=== PATIENT | female | born 1965 | race Hispanic/Latino ===

== ENCOUNTER 2018-10-23 02:44 | Emergency (ER) | payer BC, OTHER ==
[~2018-10-23] VITALS: Ht 157.5 cm; Wt 113.4 kg
--- OUTSIDE RECORDS SUMMARY | 2018-10-23 02:47 | XMS REPORT | Clinical Summary ---
Author Author [facility] Organization [facility] Address Unknown Phone Unavailable Care Team Providers Care Disability Services Coordinator Name Role Phone Lico Mcdonald MD PCP Allergies Comments Active Allergy Reactions Severity Noted Date Some powdery feeling in throat Lisinopril 11/22/2017 Medications End Date Status Medication Sig Dispensed Refills Start Date Active amLODIPine (NORVASC) 5 mg Take 1 tablet 90 tablet 1 tabletIndications: by mouth 8 Essential hypertension daily. Active naproxen (NAPROSYN) 375 Take 1 tablet 40 tablet 1 mg tabletIndications: by mouth 2 8 Abnormal x-ray times daily (with meals). 12/18/2017 Discontinued amLODIPine (NORVASC) 5 mg Take 1 tablet 90 tablet 0 tabletIndications: by mouth 8 Essential hypertension daily. 01/01/2018 Discontinued losartan (COZAAR) 50 mg Take 1 tablet 90 tablet 1 tabletIndications: by mouth 8 Abnormal EKG daily. 02/07/2018 Discontinued atorvastatin (LIPITOR) 10 Take 1 tablet 90 tablet 0 mg tabletIndications: by mouth at 8 Essential hypertension bedtime nightly. Active Problems Problem Noted Date Abnormal a-ifi-Kcpspqyw avulsion fracture of the distal fibula with 01/12/2018 overlying soft History of fatty infiltration of liver- 2 yrs back outside facility - to 12/18/2017 bring report Screening for colorectal cancer 12/18/2017 Elevated bilirubin 12/18/2017 Body mass index (BMI) 40.0-44.9, adult 12/18/2017 Abnormal EKG 12/18/2017 Anxiety 12/18/2017 Encounters Care Team Description Date Type Specialty Lico Mcdonald MD Results 06/03/2018 Telephone Family Practice Lico Mcdonald MD Need for vaccination (Primary Dx); Rosacea; Essential hypertension; Steatosis of liver; Follow up 05/30/2018 Office Visit Family Practice Elizabeth Valdivia MD Canceled (Schedule Conflict) 05/04/2018 Hospital Radiology Encounter Lico Mcdonald MD Well woman exam 03/29/2018 Lab Appointment Lab 03/09/2018 Ancillary Radiology Procedure Dorinda Stevens MD Myopia of both eyes with astigmatism and presbyopia (Primary Dx) 02/21/2018 Office Visit Ophthalmology Lico Mcdonald MD Chronic pain of left ankle (Primary Dx); Hyperlipidemia, unspecified hyperlipidemia type - pt prefers diet control ; Essential hypertension 02/07/2018 Office Visit Family [facility] Kathleen Armendariz, STAN Information Only 01/19/2018 Telephone [facility] Marion Iqbal Appointment Related Questions 01/19/2018 Telephone Lana Pandey LVN Consult (Orthopedic referral denied. See notes.) 01/16/2018 Telephone [facility] Elizabeth Valdivia MD Abnormal a-wnd-Ksiysjag avulsion fracture of the distal fibula with overlying soft (Primary Dx); Body mass index (BMI) 40.0-44.9, adult 01/12/2018 Orders Only [facility] Elizabeth Valdivia MD Abnormal y-abp-Zpjqvcjq avulsion fracture of the distal fibula with overlying soft (Primary Dx) 01/12/2018 Orders Only Family Practice Lico Mcdonald MD Results (ankle xray ) 01/03/2018 Telephone [facility] Lico Mcdonald MD 01/01/2018 Ancillary Radiology Procedure Lico Mcdonald MD Well woman exam (Primary Dx); Essential hypertension; Acute left ankle pain 01/01/2018 Office Visit Family Practice Maurice Murphy 01/01/2018 Nutrition Nutrition Lico Mcdonald MD Kuncharapu, Indumathi, MD Elevated bilirubin (Primary Dx); History of fatty infiltration of liver- 2 yrs back outside facility - to bring report ; Screening for colorectal cancer; Body mass index (BMI) 40.0-44.9, adult; Bradycardia; Abnormal EKG; Essential hypertension; Anxiety 12/18/2017 Office Visit Family Practice Elizabeth Valdivia MD History of fatty infiltration of liver- 2 yrs back outside facility - to bring report ; Body mass index (BMI) 40.0-44.9, adult; Bradycardia; Abnormal EKG; Anxiety 12/18/2017 Orders Only Family Practice Lico Mcdonald MD 12/07/2017 Hospital Cardiology Encounter Lico Mcdonald MD Bichanga, Karla Yaritza, LVN 11/30/2017 Nurse Only Lico Mcdonald MD 11/23/2017 Ancillary Radiology Procedure Lico Mcdonald MD 11/23/2017 Ancillary Radiology Procedure Lico Mcdonald MD Physical exam, annual (Primary Dx); Bradycardia; Vision test; Need for vaccination; Essential hypertension; Chronic pain of both knees; Chronic midline low back pain without sciatica; Abnormal EKG 11/22/2017 Office Visit Family Practice after 10/22/2017 Immunizations Name Dates Previously Given Next Due Influenza, 05/30/2018 Vaccine<FLUCELVAX>(Multi- Dose) Tdap (Tetanus Toxoid, 11/22/2017 Reduced Diphtheria Toxoid And Acellular Pertussis, Absorbed) Family History Medical History Relation Name Comments Heart Father Lipids Father Stroke Father Arthritis Mother Diabetes Mother Heart Mother heart attack Hypertension Mother Hypertension Sister Hypertension Sister Relation Name Status Comments Brother Other Brother Father Maternal Aunt Maternal Uncle Mother Alive Paternal Aunt Paternal Uncle Sister Alive Sister Alive Sister Alive Sister Alive Sister Alive thyroid Social History Date Tobacco Use Types Packs/Day Years Used Never Smoker Smokeless Tobacco: Never Used Tobacco Cessation: Counseling Given: No Alcohol Use Drinks/Week oz/Week Comments Yes social Sex Assigned at Date Recorded Not on file Industry Job Start Date Occupation Not on file Not on file Not on file Travel End Travel History Travel Start No recent travel history available. Last Filed Vital Signs Time Taken Vital Sign Reading 05/30/2018 9:58 AM MYCOLOGIST Blood Pressure 128/52 05/30/2018 9:16 AM MYCOLOGIST Pulse 52 05/30/2018 9:16 AM MYCOLOGIST Temperature 36.6 C (97.9 F) 05/30/2018 9:16 AM MYCOLOGIST Respiratory Rate 20 - Oxygen Saturation - - Inhaled Oxygen - Concentration 05/30/2018 9:16 AM MYCOLOGIST Weight 111.8 kg (246 lb 6.4 oz) 05/30/2018 9:16 AM MYCOLOGIST Height 154.9 cm (5' 1") 05/30/2018 9:16 AM MYCOLOGIST Body Mass Index 46.56 Plan of Treatment Health Maintenance Due Date Last Done Comments Breast Cancer Scrn 11/23/2018 11/23/2017 (Yearly) Colorectal Cancer Scrn 01/04/2019 01/04/2018 Annual (FIT/FOBT) Age 50 to 75 IMM Influenza Seasonal 04/02/2019 05/30/2018 Oct to August (>/=19 yrs) Cervical Cancer Scrn (3 01/01/2021 01/01/2018 Yrs) Procedures Comments Procedure Name Priority Date/Time Associated Diagnosis URINE CULTURE Routine 05/30/2018 Follow up 10:06 AM MYCOLOGIST LIPID PROFILE Routine 03/29/2018 Well woman exam 11:59 AM CDT LIVER PROFILE Routine 03/29/2018 Well woman exam 11:59 AM CDT U/S ABDOMEN LIMITED Routine 03/09/2018 Elevated bilirubin 9:11 AM CDT OCCULT BLOOD ICT Routine 01/04/2018 Screening for colorectal 3:50 PM CDT cancer XRAY ANKLE 3 VIEW MIN Routine 01/01/2018 Acute left ankle pain 4:00 PM CDT CHLAM/GC DNA AMPLI Routine 01/01/2018 Well woman exam 3:15 PM CDT WET MOUNT STAT 01/01/2018 Well woman exam 3:15 PM CDT KENROY STAIN STAT 01/01/2018 Well woman exam 3:15 PM CDT HPV HIGH-RISK Routine 01/01/2018 Well woman exam 3:15 PM CDT BTGH CYTOLOGY Routine 01/01/2018 12:00 AM CDT HEPATITIS B SURFACE AB Routine 12/18/2017 Elevated bilirubin 4:13 PM CDT HEP A VIRUS AB IGG Routine 12/18/2017 Elevated bilirubin 4:13 PM CDT GGT Routine 12/18/2017 Elevated bilirubin 4:13 PM CDT LIVER PROFILE Routine 12/18/2017 Elevated bilirubin 4:13 PM CDT 24 HOUR HOLTER MONITOR Routine 12/07/2017 Bradycardia 10:32 AM CDT Abnormal EKG XRAY KNEES-BILATERAL WT. Routine 11/23/2017 Chronic pain of both BEARING (AP/LAT/SUN) 9:27 AM CDT knees MAMMOGRAM BILAT SCREEN Routine 11/23/2017 Physical exam, annual DIGITAL 9:15 AM CDT URINE CULTURE Routine 11/22/2017 Physical exam, annual 3:13 PM CDT SYPHILIS SCREEN FOR Routine 11/22/2017 Physical exam, annual INFECTION 3:11 PM CDT HIV-1/HIV-2 ROUTINE Routine 11/22/2017 Physical exam, annual SCREENING 3:11 PM CDT HEPATITIS PANEL Routine 11/22/2017 Physical exam, annual 3:11 PM CDT HEMOGLOBIN A1C Routine 11/22/2017 Physical exam, annual 3:11 PM CDT LIPID PROFILE Routine 11/22/2017 Physical exam, annual 3:11 PM CDT FREE T4 Routine 11/22/2017 Physical exam, annual 3:11 PM CDT LIVER PROFILE Routine 11/22/2017 Physical exam, annual 3:11 PM CDT TSH Routine 11/22/2017 Physical exam, annual 3:11 PM CDT CBC/DIFF Routine 11/22/2017 Physical exam, annual 3:11 PM CDT BASIC METABOLIC PANEL Routine 11/22/2017 Physical exam, annual 3:11 PM CDT 12 LEAD EKG Routine 11/22/2017 Bradycardia 2:44 PM CDT Essential hypertension UA CHEMISTRIES Routine 11/22/2017 Physical exam, annual 2:13 PM CDT after 10/22/2017 Results * URINE CULTURE (05/30/2018 10:06 AM MYCOLOGIST) Only the most recent of 2 results within the time period is included. Spec Urine [facility] Description Order Comments None [facility] Culture Mixed marielle present, suggests BT MICROBIOLOGY contamination; please recollect Report Status Final 06/02/2018 BT MICROBIOLOGY Specimen Urine - URINE Performing Organization Address [facility] Phone Number [facility] BT MICROBIOLOGY * LIVER PROFILE (03/29/2018 11:59 AM CDT) Only the most recent of 3 results within the time period is included. T Protein 6.8 6.0 - 8.3 g/dL BT MAIN-STATION 1 Albumin 4.3 3.7 - 5.3 g/dL BT MAIN-STATION 1 T Bilirubin 1.0 0.2 - 1.2 mg/dL BT MAIN-STATION 1 Alk Phos 127 (H) 34 - 104 U/L BT MAIN-STATION 1 AST 23 13 - 39 U/L BT MAIN-STATION 1 ALT 28 7 - 52 U/L BT MAIN-STATION 1 D Bilirubin 0.2 0.0 - 0.2 mg/dL BT MAIN-STATION 1 Specimen Blood Performing Organization Address [facility] Phone Number CitySpadeYS BT MAIN-STATION 1 * LIPID PROFILE (03/29/2018 11:59 AM CDT) Only the most recent of 2 results within the time period is included. Cholesterol 186 mg/dL BT MAIN-STATION Comment: 1 REFERENCE RANGE: Desirable: <200 mg/dL Borderline: 200-240 mg/dL High Risk: >240 mg/dL Triglyceride 130 <150 mg/dL BT MAIN-STATION Comment: 1 REFERENCE RANGE: Normal: <150 mg/dL Borderline High: 150-199 mg/dL High: 200-499 mg/dL Very High: >gt=519 mg/dL HDL 51 mg/dL BT MAIN-STATION Comment: 1 Increased CHD risk: <40 mg/dL Decreased CHD risk: >60 mg/dL LDL 109 mg/dL BT MAIN-STATION Comment: 1 REFERENCE RANGE: Optimal: <100 mg/dL Near Optimal: 100-129 mg/dL Borderline High: 130-159 mg/dL High: 160-189 mg/dL Very High: >ns=744 mg/dL Specimen Blood Performing Organization Address [facility] Phone Number Fetchmob BT MAIN-STATION 1 * U/S ABDOMEN LIMITED (03/09/2018 9:11 AM CDT) Impressions Performed At IMPRESSION: SMS Diffuse hepatic steatosis without focal mass. Signed By: Tez Beyer MD, 03/09/2018 9:11 AM Narrative Performed At EXAM: Right Upper Quadrant Ultrasound SMS INDICATION: hx of fatty liver ; elevated bilirubin COMPARISON: None. TECHNIQUE: Transverse and longitudinal images of the right upper abdomen were obtained. FINDINGS: Liver: Size: 16.2 cm in the right midclavicular line, normal Appearance: Increased echogenicity, smooth contour Mass: No focal masses Gallbladder: Stones/Sludge: None Wall: 0.2 cm Appearance: No pericholecystic fluid or hydrops. Sonographic Kemp's Sign: Negative Bile Ducts: Intrahepatic Ducts: No dilatation Extrahepatic Ducts: Common bile duct measures 0.4 cm, no dilatation Pancreas: Visualized portions of the pancreatic head, neck and proximal body are normal. Right Kidney: Size: 10.4 cm Echogenicity: Normal Parenchymal thickness: Normal Collecting system: No hydronephrosis Stones: None Cyst/Mass: None Vessels: Aorta: Visualized portions are normal Inferior Vena Cava: Visualized portions are normal Main Portal Vein: 1.0 cm, normal size with hepatopetal flow. Free Fluid: No ascites or pleural effusion Procedure Note Interface, Rad/Mammog In - 03/09/2018 9:16 AM CDT EXAM: Right Upper Quadrant Ultrasound INDICATION: hx of fatty liver ; elevated bilirubin COMPARISON: None. TECHNIQUE: Transverse and longitudinal images of the right upper abdomen were obtained. FINDINGS: Liver: Size: 16.2 cm in the right midclavicular line, normal Appearance: Increased echogenicity, smooth contour Mass: No focal masses Gallbladder: Stones/Sludge: None Wall: 0.2 cm Appearance: No pericholecystic fluid or hydrops. Sonographic Kemp's Sign: Negative Bile Ducts: Intrahepatic Ducts: No dilatation Extrahepatic Ducts: Common bile duct measures 0.4 cm, no dilatation Pancreas: Visualized portions of the pancreatic head, neck and proximal body are normal. Right Kidney: Size: 10.4 cm Echogenicity: Normal Parenchymal thickness: Normal Collecting system: No hydronephrosis Stones: None Cyst/Mass: None Vessels: Aorta: Visualized portions are normal Inferior Vena Cava: Visualized portions are normal Main Portal Vein: 1.0 cm, normal size with hepatopetal flow. Free Fluid: No ascites or pleural effusion IMPRESSION IMPRESSION: Diffuse hepatic steatosis without focal mass. Signed By: Tez Beyer MD, 03/09/2018 9:11 AM Performing Organization Address [facility] Phone Number SMS * OCCULT BLOOD ICT (01/04/2018 3:50 PM CDT) Occult Blood Negative NEG [facility] ICT Specimen Stool Performing Organization Address [facility] Phone Number MISYS [facility] * XRAY ANKLE 3 VIEW MIN (01/01/2018 4:00 PM CDT) Impressions Performed At IMPRESSION: SMS Subacute avulsion fracture of the distal fibula with overlying soft tissue swelling. Signed By: Dudley Diaz MD, 01/02/2018 8:32 AM Narrative Performed At Ankle pain 3 views SMS HISTORY:left ankle mild pain from sprain few wks ago COMPARISON: None DISCUSSION: Subacute avulsion fracture of the distal fibula with overlying soft tissue swelling. Small plantar calcaneal enthesophyte. Procedure Note Interface, Rad/Mammog In - 01/02/2018 8:37 AM CDT Ankle pain 3 views HISTORY: left ankle mild pain from sprain few wks ago COMPARISON: None DISCUSSION: Subacute avulsion fracture of the distal fibula with overlying soft tissue swelling. Small plantar calcaneal enthesophyte. IMPRESSION IMPRESSION: Subacute avulsion fracture of the distal fibula with overlying soft tissue swelling. Signed By: Dudley Diaz MD, 01/02/2018 8:32 AM Performing Organization Address [facility] Phone Number SMS * HPV HIGH-RISK (01/01/2018 3:15 PM CDT) HPV High Risk Negative NEG BT DIAGNOSTIC Comment: IMMUNOLOGY The APTIMA HPV Assay is an in vitro nucleic acid amplification test for the qualitative detection of E6/E7 viral messenger RNA (mRNA) from 14 high-risk types of human papillomavirus (HPV) in cervical specimens. The high-risk HPV types detected by the assay include: 16,18,31,33,35,39,45,51,52,56, 58,59,66, and 68. CoPath Spec [id number] BT MOLECULAR Number PATHOLOGY Performing Organization Address [facility] Phone Number MISYS BT DIAGNOSTIC IMMUNOLOGY BT MOLECULAR PATHOLOGY * CHLAM/GC DNA AMPLI (01/01/2018 3:15 PM CDT) Chlamydia trach Negative BT DIAGNOSTIC IMMUNOLOGY N gonorrhoeae Negative BT DIAGNOSTIC This test utilizes [employer] IMMUNOLOGY Aptima Combo 2 Assay for target amplification of rRNA for the qualitative detection of Chlamydia trachomatis and Neisseria gonorrhea. Spec Endovervical [facility] Description Specimen Cervix - Endocervical Swab Performing Organization Address [facility] Phone Number EMILY BT DIAGNOSTIC IMMUNOLOGY [facility] * WET MOUNT (01/01/2018 3:15 PM CDT) Spec Vaginal [facility] Description Order Comments None [facility] Exam WBC's seen [facility] No Clue cells seen No Trichomonas seen Report Status Final 01/01/2018 [facility] Specimen Genital, vaginal - Vaginal Performing Organization Address [facility] Phone Number [facility] * KENROY STAIN (01/01/2018 3:15 PM CDT) Spec Vaginal [facility] Description Order Comments None [facility] Direct Exam No fungus seen by KENROY [facility] Report Status Final 01/01/2018 [facility] Specimen Genital, vaginal - Vaginal Performing Organization Address [facility] Phone Number EMILY [facility] * BTGH CYTOLOGY (01/01/2018 12:00 AM CDT) HX FINAL Vaginal (Liquid-based COPATH DIAGNOSIS preparation): Satisfactory for evaluation Negative for intraepithelial lesion or malignancy Narrative Performed At [facility] Date of 1965 Hospital Number [id number] Location [facility] (OP) CYTOPATHOLOGY Collected:01/01/2018 00:00 Received: 01/02/2018 08:55 FINAL DIAGNOSIS Vaginal (Liquid-based preparation): Satisfactory for evaluation Negative for intraepithelial lesion or malignancy Electronically Signed Out By MIRANDA Charles (ASCP) Clinical History Date of Last Menstrual Period: Not given Menstrual History: Pregnancies: A1 Treatment History: Hysterectomy Specimen Received: One ThinPrep Vial Educational Note: The pap smear/test is a screening test for cervical cancer.As with screening procedures, both false negative and false positive results may occur.Hence, the results should be interpreted in the context of patient's history and current clinical information. The slide has been analyzed by the automated ThinPrep Imaging System, [employer], [place], [place]. Performing Organization Address [facility] Phone Number COPATH COPATH [place] * HEPATITIS B SURFACE AB (12/18/2017 4:13 PM CDT) HBsAb Negative NEG BT MAIN-STATION 3 HBsAb <4.20 BT MAIN-STATION Concentration Negative: <8.00 mIU/mL 3 Grayzone: > or=8.00 mIU/mL to <12.00 mIU/mL Positive: > or=12.00 mIU/mL Specimen Blood Performing Organization Address City/[facility] Phone Number MISYS BT MAIN-STATION 3 * HEP A VIRUS AB IGG (12/18/2017 4:13 PM CDT) Hep A Vir Ab Positive (A) NEG BT MAIN-STATION IgG 3 Performing Organization Address [facility] Phone Number MISYS BT MAIN-STATION 3 * GGT (12/18/2017 4:13 PM CDT) GGT 34 9 - 64 U/L BT MAIN-STATION 1 Specimen Blood Performing Organization Address [facility] Phone Number MISYS BT MAIN-STATION 1 * 24 HOUR HOLTER MONITOR (12/07/2017 10:32 AM CDT) 24 HOUR HOLTER SMS MONITOR [facility] Test Date:2017-12-07 Pat Name: LANEY BROTHERS Department: Room: Gender: F Quality Assurance Group Leader: MAURICE LÓPEZ :1965-1 07-23 Requested By: Order Number: Cuba armando MD: Swapna Navas M.D. Interpretive Statements PREDOMINANT RHYTHM IS SINUS HR RANGE IS 42-107 BPM, AVG 65 BPM LONGEST PAUSE 1.4 S RARE PREMATURE ATRIAL CONTRACTIONS RARE PREMATURE VENTRICULAR CONTRACTIONS NO ATRIOVENTRICULAR BLOCK NO ISCHEMIC CHANGES Electronically Signed On 12-09-17 06:47:01 CDT by Swapna Navas M.D. Performing Organization Address [facility] Phone Number SMS * XRAY KNEES-BILATERAL WT. BEARING (AP/LAT/SUN) (11/23/2017 9:27 AM CDT) Impressions Performed At IMPRESSION: [facility] 1. Kellgren-Janusz grade 1, minimal osteoarthrosis of the right knee medial compartment. 2. Kellgren-Janusz grade 1, minimal osteoarthrosis of the left knee medial compartment. Dictated By: Romel Palmer MD, 11/23/2017 9:53 AM I have reviewed the study and agree with the findings in this report. Signed By: Dudley Diaz MD, 11/23/2017 9:59 AM Narrative Performed At EXAM: Bilateral knee x-rays with weight bearing - 4 view(s). SMS HISTORY: b/l knee pain COMPARISON: None. TECHNIQUE: Weight bearing AP and lateral views of the bilateral knees. DISCUSSION: No acute fracture or malalignment on this frontal view. Right: No joint space narrowing. Mild spurring of the intercondylar eminence. No excessive joint fluid. No soft tissue abnormality is identified. Fabella. Left: No joint space narrowing. Mild spurring of the intercondylar eminence. No excessive joint fluid. No soft tissue abnormality is identified. Fabella. Procedure Note Interface, Rad/Mammog In - 11/23/2017 10:04 AM CDT EXAM: Bilateral knee x-rays with weight bearing - 4 view(s). HISTORY: b/l knee pain COMPARISON: None. TECHNIQUE: Weight bearing AP and lateral views of the bilateral knees. DISCUSSION: No acute fracture or malalignment on this frontal view. Right: No joint space narrowing. Mild spurring of the intercondylar eminence. No excessive joint fluid. No soft tissue abnormality is identified. Fabella. Left: No joint space narrowing. Mild spurring of the intercondylar eminence. No excessive joint fluid. No soft tissue abnormality is identified. Fabella. IMPRESSION IMPRESSION: 1. Kellgren-Janusz grade 1, minimal osteoarthrosis of the right knee medial compartment. 2. Kellgren-Janusz grade 1, minimal osteoarthrosis of the left knee medial compartment. Dictated By: Romel Palmer MD, 11/23/2017 9:53 AM I have reviewed the study and agree with the findings in this report. Signed By: Dudley Diaz MD, 11/23/2017 9:59 AM Performing Organization Address City/State/Zipcode Phone Number SMS * MAMMOGRAM BILAT SCREEN DIGITAL (11/23/2017 9:15 AM CDT) Impressions Performed At IMPRESSION: NEGATIVE SMS There is no mammographic evidence of malignancy. A 1 year screening mammogram is recommended. This document has been electronically signed. Stephany Bonilla M.D. aar/penrad:11/23/2017 09:53:43 Machine Brusher: Renee Fitch Sr. Boilermaker'S AssistantMountainside Hospital letter sent: Mammography Normal Mammogram BI-RADS: 1 Negative G0202 Z12.31 Narrative Performed At #[id number] - MAMMOGRAM BILAT SCREEN DIGITAL SMS BILATERAL DIGITAL SCREENING MAMMOGRAM WITH CAD: 11/23/2017 CLINICAL: Screening for malignancy. No prior exams were available for comparison. There are scattered fibroglandular elements in both breasts that could obscure a lesion on mammography. Current study was also evaluated with a Computer Aided Detection (CAD) system. No significant masses, calcifications, or other findings are seen in either breast. Procedure Note Interface, Rad/Mammog In - 11/23/2017 10:21 AM CDT #[id number] - MAMMOGRAM BILAT SCREEN DIGITAL BILATERAL DIGITAL SCREENING MAMMOGRAM WITH CAD: 11/23/2017 CLINICAL: Screening for malignancy. No prior exams were available for comparison. There are scattered fibroglandular elements in both breasts that could obscure a lesion on mammography. Current study was also evaluated with a Computer Aided Detection (CAD) system. No significant masses, calcifications, or other findings are seen in either breast. IMPRESSION IMPRESSION: NEGATIVE There is no mammographic evidence of malignancy. A 1 year screening mammogram is recommended. This document has been electronically signed. Stephany Bonilla M.D. aar/penrad:11/23/2017 09:53:43 Machine Brusher: Renee Fitch Sr. Boilermaker'S AssistantMount[facility]ide Hospital letter sent: Mammography Normal Mammogram BI-RADS: 1 Negative G0202 Z12.31 Performing Organization Address City/[facility] Phone Number SMS * SYPHILIS SCREEN FOR INFECTION (11/22/2017 3:11 PM CDT) Treponemal Ab Negative BT DIAGNOSTIC IMMUNOLOGY Final Report Negative BT DIAGNOSTIC IMMUNOLOGY Performing Organization Address [place]/[facility] Phone Number [facility] BT DIAGNOSTIC IMMUNOLOGY * HIV-1/HIV-2 ROUTINE SCREENING (11/22/2017 3:11 PM CDT) HIV-1/HIV-2 Negative NEG BT OUTPATIENT DRAW 2 Performing Organization Address City/[facility] Cent[facility] Phone Number [facility] BT OUTPATIENT DRAW 2 * HEMOGLOBIN A1C (11/22/2017 3:11 PM CDT) Hemoglobin A1c 5.8 4.3 - 6.1 % BT DIAGNOSTIC IMMUNOLOGY Est Average 119.8 mg/dL BT DIAGNOSTIC Gluc IMMUNOLOGY Specimen Blood Performing Organization Address [facility] Phone Number [facility] DIAGNOSTIC IMMUNOLOGY * TSH (11/22/2017 3:11 PM CDT) TSH 1.73 0.57 - 3.74 uIU/mL BT MAIN-STATION 1 Specimen Blood Performing Organization Address [facility] Phone Number [facility] BT MAIN-STATION 1 * FREE T4 (11/22/2017 3:11 PM CDT) Free T4 1.04 0.61 - 1.18 ng/dl BT MAIN-STATION Comment: 1 females: 1st Trimester-0.52-1.10 ng/dL 2nd Trimester=0.45-0.99 ng/dL 3rd Trimester=0.48-0.95 ng/dL Specimen Blood Performing Organization Address [facility] Phone Number [facility] BT MAIN-STATION 1 * HEPATITIS PANEL (11/22/2017 3:11 PM CDT) HCV IgG Negative NEG BT OUTPATIENT DRAW 2 HBsAg Negative NEG BT OUTPATIENT DRAW 2 HAV, IgM Negative NEG BT OUTPATIENT DRAW 2 HBcAb, IgM Negative NEG BT OUTPATIENT DRAW 2 Specimen Blood Performing Organization Address [facility] Phone Number [facility] BT OUTPATIENT DRAW 2 * CBC/DIFF (11/22/2017 3:11 PM CDT) WBC 6.6 4.5 - 11.0 K/uL BT MAIN-STATION 2 RBC 5.10 4.20 - 5.40 M/uL BT MAIN-STATION 2 Hemoglobin 15.6 12.0 - 16.0 g/dL BT MAIN-STATION 2 Hematocrit 48.1 (H) 37.0 - 47.0 % BT MAIN-STATION 2 MCV 94 (H) 82 - 92 fL BT MAIN-STATION 2 MCH 30.6 27.0 - 32.0 pg BT MAIN-STATION 2 MCHC 32.4 32.0 - 36.0 g/dL BT MAIN-STATION 2 RDW 44.4 36.4 - 46.3 fL BT MAIN-STATION 2 Platelet 214 150 - 400 K/uL BT MAIN-STATION 2 Mean Platelet 13.1 (H) 9.4 - 12.4 fL BT MAIN-STATION Volume 2 Percent NRBC 0.0 BT MAIN-STATION 2 Absolute NRBC 0.00 BT MAIN-STATION 2 Neutrophil 54.0 34.0 - 70.0 % BT MAIN-STATION 2 Lymphocyte 33.6 20.0 - 50.0 % BT MAIN-STATION 2 Monocyte 9.2 5.0 - 12.0 % BT MAIN-STATION 2 Eosinophil 1.8 0.7 - 5.0 % BT MAIN-STATION 2 Basophil 1.2 0.1 - 1.2 % BT MAIN-STATION 2 Pct Immat Gran 0.2 0.0 - 0.5 BT MAIN-STATION 2 Neutrophil, Abs 3.57 1.56 - 6.13 K/uL BT MAIN-STATION 2 Lymphocyte, Abs 2.22 1.18 - 3.74 K/uL BT MAIN-STATION 2 Monocyte, Abs 0.61 (H) 0.24 - 0.36 K/uL BT MAIN-STATION 2 Eosinophil, Abs 0.12 0.04 - 0.36 K/uL BT MAIN-STATION 2 Basophil, Abs 0.08 0.01 - 0.08 K/uL BT MAIN-STATION 2 Absol Immat 0.01 0.00 - 0.03 K/uL BT MAIN-STATION Gran 2 Specimen Blood Performing Organization Address City/State/Zipcode Phone Number [facility] BT MAIN-STATION 2 * BASIC METABOLIC PANEL (11/22/2017 3:11 PM CDT) CO2 32 (H) 21 - 31 mmol/L BT MAIN-STATION 1 Chloride 103 98 - 107 mmol/L BT MAIN-STATION 1 Potassium 4.0 3.5 - 5.1 mmol/L BT MAIN-STATION 1 Sodium 143 136 - 145 mmol/L BT MAIN-STATION 1 Glucose 89 70 - 110 mg/dL BT MAIN-STATION 1 Urea Nitrogen 16 7 - 25 mg/dL BT MAIN-STATION 1 Creatinine 0.70 0.6 - 1.2 mg/dL BT MAIN-STATION 1 Anion Gap 8 BT MAIN-STATION 1 Calcium 10.3 8.6 - 10.3 mg/dL BT MAIN-STATION 1 GFR, Estimated >60 mL/min/1.73 m2 BT MAIN-STATION 1 GFR, Estim, >60 mL/min/1.73 m2 BT MAIN-STATION Afr-Am 1 Specimen Blood Performing Organization Address [facility]ercoks Phone Number [facility] BT MAIN-STATION 1 * 12 LEAD EKG (11/22/2017 2:44 PM CDT) 12 LEAD EKG FOR [facility] Test Date:2017-11-22 Pat Name: LANEY BROTHERS Department: Room: Gender: F [employer] Leader: [id number] :1965-1 07-23 Requested By: Order Number: [place] armando MD: Swapna Navas M.D. Measurements Intervals [place] Rate: 53 P:34 MT: 161 QRS: -4 QRSD: 92 T:35 QT: 468 QTc:440 Interpretive Statements SINUS BRADYCARDIA MODERATE VOLTAGE CRITERIA FOR LVH, CONSIDER NORMAL VARIANT MODERATE T-WAVE ABNORMALITY, CONSIDER ANTERIOR ISCHEMIA Electronically Signed On 11-22-17 17:39:37 CDT by Swapna Navas M.D. Performing Organization Address [facility] CenterMideoMe Phone Number [facility] * UA CHEMISTRIES (11/22/2017 2:13 PM CDT) Color Yellow BT MAIN-STATION 3 Clarity Clear BT MAIN-STATION 3 Spec [place] 1.016 1.001 - 1.035 BT MAIN-STATION 3 pH 6.0 5 - 8 BT MAIN-STATION 3 Protein Negative NEG BT MAIN-STATION 3 Glucose Negative NEG BT MAIN-STATION 3 Ketone Negative NEG BT MAIN-STATION 3 Bilirubin Negative NEG BT MAIN-STATION 3 Nitrate Negative NEG BT MAIN-STATION 3 Urobilinogen <1.0 0.2 - 1.0 EU/dL BT MAIN-STATION 3 Leukocyte Negative NEG BT MAIN-STATION 3 Blood Negative NEG BT MAIN-STATION 3 Specimen Urine Performing Organization Address [facility]ercoks Phone Number [facility] BT MAIN-STATION 3 after 10/22/2017
--- OUTSIDE RECORDS SUMMARY | 2018-10-23 02:48 | XMS REPORT ---
Author Author [facility] Address Unknown Phone Unavailable Care Team Providers Care Director Of Exhibit Development Name Role Phone Unavailable Unavailable Problems This patient has no known problems. Allergies, Adverse Reactions, Alerts This patient has no known allergies or adverse reactions. Medications This patient has no known medications. Encounters Start Date/Time End Date/Time Encounter Type Admission Type Attending [facility] Care Department Encounter ID 2018-09-14 00:00:00 2018-09-14 00:00:00 Outpatient [facility] [id number] 2018-09-12 00:00:00 2018-09-12 00:00:00 Outpatient [facility] [id number] 2018-06-29 00:00:00 2018-06-29 00:00:00 Outpatient [facility] [id number] 2018-06-27 00:00:00 2018-06-27 00:00:00 Outpatient [facility] [id number] 2018-06-13 00:00:00 2018-06-13 00:00:00 Outpatient [facility] [id number] 2018-06-05 00:00:00 2018-06-05 00:00:00 Outpatient [facility] [id number] 2018-06-01 00:00:00 2018-06-01 00:00:00 Outpatient [facility] [id number] 2018-05-30 09:15:23 2018-05-30 09:15:23 Outpatient [facility] [id number] 2018-05-15 00:00:00 2018-05-15 00:00:00 Outpatient [facility] [id number] 2018-05-04 00:00:00 2018-05-04 00:00:00 Outpatient [facility] [id number] 2018-04-13 00:00:00 2018-04-13 00:00:00 Outpatient [facility] [id number] 2018-04-12 00:00:00 2018-04-12 00:00:00 Outpatient [facility] [id number] 2018-04-02 00:00:00 2018-04-02 00:00:00 Outpatient [facility] [id number] 2018-03-30 00:00:00 2018-03-30 00:00:00 Outpatient [facility] [id number] 2018-03-29 12:00:04 2018-03-29 12:00:04 Outpatient [facility] [id number] 2018-03-09 08:37:54 2018-03-09 08:37:54 Outpatient [facility] [id number] 2018-02-21 08:08:13 2018-02-21 08:08:13 Outpatient [facility] [id number] 2018-02-07 15:13:04 2018-02-07 15:13:04 Outpatient [facility] [id number] 2018-01-19 00:00:00 2018-01-19 00:00:00 Outpatient [facility] [id number] 2018-01-16 00:00:00 2018-01-16 00:00:00 Outpatient [facility] [id number] 2018-01-10 00:00:00 2018-01-10 00:00:00 Outpatient [facility] [id number] 2018-01-04 15:51:02 2018-01-04 15:51:02 Outpatient [facility] [id number] 2018-01-01 15:49:21 2018-01-01 15:49:21 Outpatient [facility] [id number] 2018-01-01 13:52:44 2018-01-01 13:52:44 Outpatient [facility] [id number] 2017-12-18 16:36:10 2017-12-18 16:36:10 Outpatient [facility] [id number] 2017-12-18 14:53:16 2017-12-18 14:53:16 Outpatient [facility] [id number] 2017-12-18 00:00:00 2017-12-18 00:00:00 Outpatient [facility] [id number] 2017-12-07 10:21:53 2017-12-07 10:21:53 Outpatient [facility] [id number] 2017-12-05 00:00:00 2017-12-05 00:00:00 Outpatient [facility] [id number] 2017-12-01 00:00:00 2017-12-01 00:00:00 Outpatient [facility] [id number] 2017-11-30 10:40:06 2017-11-30 10:40:06 Outpatient [facility] [id number] 2017-11-23 09:18:46 2017-11-23 09:18:46 Outpatient [facility] [id number] 2017-11-23 08:18:55 2017-11-23 08:18:55 Outpatient [facility] [id number] 2017-11-22 15:17:25 2017-11-22 15:17:25 Outpatient [facility] [id number] 2017-11-22 13:43:13 2017-11-22 13:43:13 Outpatient [facility] [id number]
--- NOTE | 2018-10-23 03:31 | Diagnostic Imaging Report ---
EXAMINATION: CXR 2 VIEW - HOPD INDICATION: Cough. Shortness of breath. COMPARISON: None FINDINGS: TUBES and LINES: None. LUNGS: Mild patchy density in the lingula and left lower lobe may represent atelectasis versus scarring, however, cannot exclude developing pneumonia in the proper clinical setting. PLEURA: No pleural effusion or pneumothorax. HEART AND MEDIASTINUM: Cardiac silhouette is mildly to moderately enlarged. BONES AND SOFT TISSUES: No acute osseous lesion. Soft tissues are unremarkable. UPPER ABDOMEN: No free air under the diaphragm. IMPRESSION: Mild patchy density in the lingula and left lower lobe may represent atelectasis versus scarring, however, cannot exclude developing pneumonia in the proper clinical setting. Signed by: Dr. Yamini Rae M.D. on 10/23/2018 3:27 AM
[2018-10-23 06:30] LABS: HEMATOCRIT 42.7 % (34.2-44.1); HEMOGLOBIN 14.1 g/dL (12.0-16.0); MEAN CORPUSCULAR VOLUME 90.9 fL (81-99); PLATELET COUNT 186 x10e3/uL (140-360); RED CELL DISTRIBUTION WIDTH 13.2 % (11.7-14.4)
[2018-10-23 06:55] LABS: EOSINOPHILS % (MANUAL) 4 % (0-7); LYMPHOCYTES % (MANUAL) 26 % (19-48); MONOCYTES % (MANUAL) 16 % (3.4-9.0); NEUTROPHILS % (MANUAL) 53 % (40-74)
== END 2018-10-23 04:27 | disposition home or self-care (01) ==
LOC: FSED 02:44
DX: R50.9 Fever, unspecified (principal); R05 Cough; J15.9 Unspecified bacterial pneumonia
CPT/HCPCS: 36415; 71046; 83518; 85007; 85027; 87400; 99283

== ENCOUNTER → 2021-02-15 | Outpatient (CLI) | payer BC | LOC: MAMMO 11:20 | PROVIDERS: ATTEND Internal Medicine | DX: Z12.31 Encounter for screening mammogram for malignant neoplasm of breast (principal) ==